=== PATIENT | male | born 1935 | race Caucasian/White ===

== ENCOUNTER → 2016-08-11 | Outpatient (CLI) | payer MEDICARE, BC, MEDICAID ==
[~2016-08-11] MED LIST: ADVIL DPS200 MG PO; ASA CHILDREN'S81 MG PO; ASPIRIN325 MG PO; CELEBREX100 MG PO; COUMADIN2.5 MG PO; COUMADIN5 MG PO; DILAUDID2 M1 PO; DULCOLAX-DPS10 MG PR; ELAVIL-DPS10 MG PO; FLOMAX DPS0.4 MG PO; HABITROL DPS21 MG TD; HYDROCODONE 7.7.5 MG PO; INVANZ1 GM IM; KLOR-CON M2020 ME1 PO; LASIX DPS20 MG PO; LEVAQUIN DPS750 MG PO; LIDEX E 0.05%60 GM TP; LIORESAL DPS10 MG PO; LOVENOX DP80 MG/0.8 SQ; MAALOX DPS30 ML PO; MILK OF MAGNESI10 ML PO; MIRALAX PACKET17 GM PO; MOI-STIR120 ML PO; MYCOSTATIN PWD15 GM TP; NEURONTIN DPS300 MG PO; PRILOSEC DPS20 MG PO; SENOKOT S1 TAB PO; SURFAK DPS240 MG PO; TEMOVATE O.05%15 GM TP; TEMOVATE30 GM TP; TYLENOL DPS325 MG PO; VITAMIN D35000 UNIT PO; WELLBUTRIN SR150 M1 PO
== END | disposition home or self-care (01) ==
LOC: RAD.S 13:45
DX: M25.552 Pain in left hip (principal); Z96.642 Presence of left artificial hip joint

== ENCOUNTER → 2016-11-21 | Outpatient (CLI) | payer MEDICARE, BC, MEDICAID | END | disposition home or self-care (01) | LOC: RAD.S 09:04 | DX: M25.521 Pain in right elbow (principal); S50.01XA Contusion of right elbow, initial encounter; X58.XXXA Exposure to other specified factors, initial encounter ==